=== PATIENT | female | born 1990 ===

== ENCOUNTER 2017-07-05 18:01 | Emergency (ER) | payer SELFPAY ==
[2017-07-05 18:16] VITALS: RESP 18; TEMP 98.3
--- NOTE | 2017-07-05 19:39 | C.PDOC ---
History Of Present Illness Patient presents to the ER after she was on the bus and suddenly felt dizzy, palpitations, and anxious. Patient states she felt like she had difficulty swallowing and felt increasingly nervous; this never happened to her before. Patient is currently speaking in complete sentences and able to tolerate PO; denies fever, chills, nausea, or vomiting. Time Seen by Provider: 07/05/17 19:39 Chief Complaint (Nursing): Shortness Of Breath History Per: Patient History/Exam Limitations: no limitations Onset/Duration Of Symptoms: Hrs Current Symptoms Are (Timing): Still Present Severity: Moderate Pain Scale Rating Of: 4 Recent travel outside of the [place]: No Past Medical History Reviewed: Historical Data, Nursing Documentation, Vital Signs Vital Signs: Last Vital Signs Temp 98.3 F 07/05/17 18:13 Pulse 65 07/05/17 20:57 Resp 18 07/05/17 20:57 BP 120/77 07/05/17 20:57 Pulse Ox 99 07/05/17 20:57 Family History: States: No Known Family Hx - Social History Hx Alcohol Use: Yes Hx Substance Use: No - Immunization History Hx Tetanus Toxoid Vaccination: No Hx Influenza Vaccination: No Hx Pneumococcal Vaccination: No Review Of Systems Constitutional: Negative for: Fever, Chills ENT: Positive for: Other (Difficulty swallowing). Negative for: Throat Pain Cardiovascular: Positive for: Palpitations Gastrointestinal: Negative for: Nausea, Vomiting Neurological: Positive for: Dizziness Psych: Positive for: Anxiety Physical Exam - Physical Exam Appears: Non-toxic Skin: Warm, Dry Head: Normacephalic Oral Mucosa: Moist Throat: No Erythema, No Exudate, No Other (Swelling) Chest: Symmetrical Cardiovascular: Rhythm Regular Respiratory: No Rales, No Rhonchi, No Wheezing Gastrointestinal/Abdominal: Soft, No Tenderness Neurological/Psych: Oriented x3 ED Course And Treatment ECG: Interpreted By Me, Viewed By Me ECG Rhythm: Sinus Rhythm (72), Nonspecific Changes O2 Sat by Pulse Oximetry: 100 (Room air) Pulse Ox Interpretation: Normal Progress Note: EKG and blood work ordered. Ativan administered. Reevaluation Time: 21:04 Reassessment Condition: Improved Disposition Counseled Patient/Family Regarding: Studies Performed, Diagnosis, Need For Followup, Rx Given - Disposition Referrals: [facility] [Outside] Disposition: HOME/ ROUTINE Disposition Time: 19:39 Condition: FAIR Instructions: Anxiety (ED) Forms: [facility] (Citizen [place]) - Clinical Impression Clinical Impression: Anxiety - Scribe Statement The provider has reviewed the documentation as recorded by the Scribe Saqib Conner All medical record entries made by the Scribe were at my direction and personally dictated by me. I have reviewed the chart and agree that the record accurately reflects my personal performance of the history, physical exam, medical decision making, and the department course for this patient. I have also personally directed, reviewed, and agree with the discharge instructions and disposition.
[2017-07-05 20:57] VITALS: BP 120/77; PULSE 65
[2017-07-05 21:04] VITALS: O2SAT 100
== END 2017-07-05 21:15 | disposition home or self-care (01) ==
LOC: C.ER 18:01
DX: F41.9 Anxiety disorder, unspecified (principal)